=== PATIENT | female | born 1980 | race Caucasian/White ===

== ENCOUNTER 2017-01-25 11:49 | Inpatient (IN) | payer OTHER ==
[~2017-01-25] VITALS: Ht 162.6 cm; Wt 57.5 kg
--- NOTE | ~2017-01-25 | CO ---
Unit #: [id number] #: [id number] Patient: JANETT HOLMAN [id number] [address] [address] [id number] I MR#: [id number] NAME: JANETT HOLMAN ROOM: 47 Age: Sex: F Admission Date: 01/25/2017 : 1980 Attending Physician: Hannah Chirinos M.D. Primary Care Physician: No Primary Care Physician Consultation Date: 01/26/2017 CONSULTATION REPORT HISTORY AND EXAM Ms. Hloman is a 36-year-old female who has developed an abscess in the right antecubital fossa secondary to IV drug abuse with heroin. PAST MEDICAL HISTORY Tubal ligation. ALLERGIES No allergies to medication. MEDICATIONS No prescription medications. FAMILY HISTORY Diabetes. SOCIAL HISTORY Heroin abuse, tobacco abuse. Denies alcohol. REVIEW OF SYSTEMS Otherwise unremarkable. PHYSICAL EXAMINATION VITAL SIGNS: Her temperature is 98.3. Vital signs are stable. The patient is noncooperative with exam and rude and discourse. HEENT: Unremarkable. CARDIAC: Regular rhythm. LUNGS: Clear. ABDOMEN: Soft. EXTREMITIES: Tender, palpable, fluctuant abscess right antecubital fossa, otherwise unremarkable. NEUROLOGICAL: Grossly intact. DIAGNOSTIC STUDIES LABORATORY: Basic metabolic panel is within normal limits. White count 10,700, hemoglobin 12.8, platelets 315,000. Urinalysis was consistent with urinary tract infection. IMAGING: Ultrasound of the right upper extremity shows no evidence of deep venous thrombosis. Plain films of the arm showed no fracture, foreign body or dislocation. There is no gas in the subcutaneous tissues. Unit #: [id number] #: [id number] Patient: JANETT HOLMAN ASSESSMENT AND PLAN 1. Right antecubital fossa abscess secondary to IV drug abuse: The patient will need incision and drainage. I discussed this with the patient and explained to her that postop she will have an open wound requiring dressing changes. She seems to understand but doesn't really care what I tell her. 2. Urinary tract infection: Should be covered by the antibiotics she has been given for the abscess. 3. IV drug abuse. Dictated by... Bc Bo M.D. ASHLEY/franc TD: 01/26/2017 07:35 JOB #: [id number] CONSULTATION REPORT Page 1 of 1 X Bc oB MD CONSULTATION REPORT
--- NOTE | ~2017-01-25 | OR ---
Unit #: [id number] #: [id number] Patient: JANETT MIRANDA [id number] [address] [address] [id number] I MR#: [id number] NAME: JANETT MIRANDA ROOM: 47 Date of Procedure: 01/26/2017 Admission Date: 01/25/2017 Surgeon: Andrew Verdugo M.D. : 1980 Attending Physician: Dixon Montanez M.D. Primary Care Physician: Primary Care Physician No OPERATIVE REPORT PREOPERATIVE DIAGNOSIS Right antecubital fossa abscess. POSTOPERATIVE DIAGNOSIS Right antecubital fossa abscess. PROCEDURE PERFORMED Incision and drainage of right antecubital fossa abscess. ANESTHESIA General LMA anesthesia with 0.5% Marcaine plain local anesthesia. FINDINGS The patient had a right antecubital fossa abscess. All loculations were broken up. Cultures were sent. SPECIMENS Sent to microbiology. COMPLICATIONS None apparent. CONDITION The patient tolerated the procedure well. INDICATIONS FOR PROCEDURE The patient is a 36-year-old white female, who injected her right antecubital fossa with IV drugs. She developed erythema, cellulitis, and induration and an abscess in the area. She presents at this time for incision and drainage. DESCRIPTION OF PROCEDURE After obtaining informed consent as well as receiving scheduled antibiotics, the patient was brought to the operating room and after adequate general LMA anesthesia was obtained, had her right antecubital fossa prepped and draped in a sterile fashion. A 10 mL syringe with a 21-gauge needle was used to aspirate the area and a pocket of purulent material was found. An incision was made transversely and dissection was taken down through the skin and through the subcutaneous tissues with a knife and the electrocautery. A hemostat was used to enter into the abscess cavity and purulent material was evacuated. Cultures were sent. Unit #: [id number] #: [id number] Patient: JANETT MIRANDA All loculations were broken up. The wound was irrigated. Hemostasis was obtained with the Bovie, infiltrated with 0.5% Marcaine plain local anesthesia and packed with a saline soaked fluffs. Dry dressings were applied followed by a Kerlix wrap. Needle counts, sponge counts, and instrument counts were all correct as reported by the scrub nurse x2. The patient went from the operating room to recovery room in stable condition. Dictated by... Dario Zavala/burton TD: 01/26/2017 16:38 JOB #: [id number] CC: [facility] OPERATIVE REPORT Page 1 of 1 X Andrew Verdugo MD X PROCEDURE OPERATIVE NOTE
--- NOTE | ~2017-01-25 | DS ---
Unit #: [id number] #: [id number] Patient: JANETT MIRANDA [id number] [facility] [address] [facility]. [place], [place] [address] [id number] I MR#: [id number] NAME: JANETT MIRANDA ROOM: 47 Age: 36 Sex: F Admission Date: 01/25/2017 : 1980 Discharge Date: 01/29/2017 Attending Physician: Dixon Montanez M.D. Primary Care Physician: No Primary Care Physician DISCHARGE SUMMARY DISCHARGE DIAGNOSES 1. Abscess. Right arm cellulitis. 2. Drug abuse. HOSPITAL COURSE The patient is a 36-year-old female with IV heroin use. She presented to [facility] emergency department with right arm pain. It had been progressive over three days. The patient was noted to have some redness and swelling as well. The patient was taken to the operating room on 01/26/2017, where she underwent incision and drainage of right antecubital fossa abscess. Ultimately cultures have grown MRSA, susceptible to doxycycline. There was some concern initially about the best way to manage this patient as an outpatient, as she is apparently homeless. She states that she has secured a place to stay at her boyfriend's parents house. She is being discharged there now with home health for wound care. DISCHARGE MEDICATIONS 1. Percocet 10/325 mg 1 p.o. b.i.d. before dressing changes. 2. Doxycycline 100 mg p.o. b.i.d., #20. FOLLOWUP The patient should follow up with [facility] as needed. Dictated by... Koko Pizarro M.D. DEYSI/vasyl TD: 01/29/2017 08:30 JOB #: [id number] Unit #: [id number] #: [id number] Patient: JANETT MIRANDA DISCHARGE SUMMARY Page 1 of 1 X Koko Pizarro MD X DISCHARGE SUMMARY
--- NOTE | ~2017-01-25 | US140 ---
[facility] A Service of [facility] & [facility] RADIOLOGY TEXT RESULTS PATIENT: JANETT MIRANDA LOCATION: SED : 82 UNIT #: [id number] AGE: [address]: Robert Mckeon MD SEX: F ORDER DR: [id number] [place] [id number] E MR#: [id number] Acc #: [id number] NAME: JANETT MIRANDA : 1980 SEX: F STUDY DATE/TIME: 01/25/2017 13:15 UNIT: SED ROOM: STUDY DESCRIPTION: UE Veins Unilat or Ltd Stdy Attending Physician: Robert Mckeon M.D. Ordering Physician: Physician Non-Staff Primary Care Physician: Primary Care Physician No MEDICAL IMAGING REPORT This report is preliminary unless electronic signature is present. EXAM Right upper extremity venous ultrasound HISTORY Right upper extremity pain and swelling after IV drug usage x3 days. FINDINGS Real-time ultrasonography of the right upper extremity venous structures performed. Rasheed-scale, color Doppler and Doppler pulse-wave interrogation utilized. The right internal jugular, subclavian, axillary and brachial veins are patent. Normal compressibility where anatomically possible. Gpie-ot-kujv flow on color Doppler interrogation. There is no evidence of deep venous thrombosis. The right basilic and cephalic veins are patent as well with normal compressibility and normal fyrx-go-mylc flow on color Doppler interrogation. There is no evidence of superficial venous thrombosis. Somewhat irregular turbulent flow seen in the right internal jugular, subclavian and axillary veins on color Doppler interrogation and Doppler pulse waveform evaluation. Doppler pulse waveforms have a somewhat periodic configuration. Exact etiology is unclear. This might be interference from adjacent arterial structures. In light of the patient's history, correlate with any clinical concern for possible AV fistula. IMPRESSION 1. Right upper extremity venous ultrasound shows no evidence of deep or superficial venous thrombosis at time of this examination. 2. Somewhat turbulent flow on color Doppler and Doppler pulse-wave interrogation in right internal jugular, subclavian and axillary veins. Doppler pulse waveforms have a somewhat periodic appearance to them. The exact etiology of this appearance is unclear. It could be artifactual and reflect some transmission of wave form from adjacent arterial structures. In light of the patient's history, correlate with any clinical concern for possible AV fistula. [facility] A Service of [facility] RADIOLOGY TEXT RESULTS PATIENT: JANETT MIRANDA LOCATION: SED : 82 UNIT #: [id number] AGE: [address]: Robert Mckeon MD SEX: F ORDER DR: Dictated by... Maxim Lopez M.D. THIS IS AN ELECTRONICALLY VERIFIED REPORT Maxim Lopez M.D. at 01/25/2017 6:04 PM Caden TD: 01/25/2017 15:40 JOB #: [id number] MEDICAL IMAGING REPORT Page 1 of 1
--- NOTE | ~2017-01-25 | CR94 ---
[facility] A Service of [facility] & [facility] RADIOLOGY TEXT RESULTS PATIENT: JANETT MIRANDA LOCATION: SED : 82 UNIT #: [id number] AGE: [address]: Robert Mckeon MD SEX: F ORDER DR: [id number] [place] [address] [id number] E MR#: [id number] Acc #: [id number] NAME: JANETT MIRANDA : 1980 SEX: F STUDY DATE/TIME: 01/25/2017 UNIT: SED ROOM: STUDY DESCRIPTION: CR Elbow Min 3 Views Rt Attending Physician: Robert Mckeon M.D. Ordering Physician: Robert Mckeon M.D. Primary Care Physician: Primary Care Physician No MEDICAL IMAGING REPORT This report is preliminary unless electronic signature is present. EXAM Right elbow 3 views 01/25/2017 12:16 hours HISTORY 36-year-old woman with history of intravenous drug use, infected, red painful injection site of the right elbow. Evaluate for foreign body. COMPARISON None. FINDINGS AP, lateral and oblique views demonstrate diffuse subcutaneous edema in the antecubital fossa extending both proximally and distally. There is no intraarticular joint effusion, fracture or bone lesion. No foreign body seen. IMPRESSION Diffuse subcutaneous edema in an acute all fossa with no fracture, foreign body or soft tissue gas. Dictated by... Kaila Chen M.D. THIS IS AN ELECTRONICALLY VERIFIED REPORT Kaila Chen M.D. at 01/25/2017 2:32 PM RHONDAM/tacho TD: 01/25/2017 14:07 JOB #: [id number] MEDICAL IMAGING REPORT Page 1 of 1
--- NOTE | ~2017-01-25 | HP ---
Unit #: [id number] #: [id number] Patient: JANETT MIRANDA [id number] [address] [place], [place] [address] [id number] I MR#: [id number] NAME: JANETT MIRANDA ROOM: 47 Age: 36 Sex: F Admission Date: 01/25/2017 : 1980 Attending Physician: Hannah Chirinos M.D. Primary Care Physician: No Primary Care Physician HISTORY AND PHYSICAL HISTORY OF PRESENT ILLNESS The patient is a 36-year-old woman who presented to the emergency room with symptoms of increasing pain over her right arm over the past three days. Patient states that she was injecting heroin into her right arm three days ago and subsequently the next day she noticed redness and pain over the area following which today she had difficulty moving her right arm due to the pain and swelling. PAST MEDICAL HISTORY No prior past medical illness. PAST SURGICAL HISTORY Tubal ligation. SOCIAL HISTORY Heroin abuse, smokes about a pack and a half a day, no alcohol abuse. FAMILY HISTORY Family history of diabetes in her father's side. ALLERGIES No known drug allergies. REVIEW OF SYSTEMS As per HPI. Rest of review of systems is negative. PHYSICAL EXAMINATION GENERAL: On examination patient is awake, alert, oriented, well nourished. HEENT: Oropharynx is clear. NECK: Supple. Trachea midline. CVS: Regular rate and rhythm. LUNGS: Clear to auscultation bilaterally. ABDOMEN: Soft, nontender, nondistended. EXTREMITIES: Redness, erythema and swelling over the right antecubital fossa of the right arm. Peripheral pulse is palpable bilaterally. No cyanosis. RECORD CLERK: No focal deficits. ASSESSMENT AND PLAN Right arm cellulitis and abscess secondary to heroin abuse. Plan is to order empiric IV broad-spectrum antibiotics; vancomycin to cover MRSA, Zosyn to cover anaerobes and Gram negatives. Surgical consultation for Unit #: [id number] #: [id number] Patient: JANETT MIRANDA incision and drainage. Dictated by Dario Trivedi/azar TD: 01/25/2017 21:48 JOB #: [id number] HISTORY AND PHYSICAL Page 1 of 1 X X HISTORY AND PHYSICAL
--- NOTE | ~2017-01-25 | CO ---
Unit #: [id number] #: [id number] Patient: AJNETT HOLMAN [id number] [facility] [address] [facility] [place] [facility]. [place], [place] [address] [id number] I MR#: [id number] NAME: JANETT HOLMAN ROOM: 477 Age: 36 Sex: F Admission Date: 01/25/2017 : 1980 Attending Physician: Dixon Montanez Consultation Date: 01/27/2017 CONSULTATION REPORT REASON FOR CONSULTATION Agitation, aggression, history of substance abuse, benzodiazepine, amphetamine, and opioids. HISTORY OF PRESENT ILLNESS Ms. Janett Holman is a 36-year-old female, seen in room 477 bed 1 on 4C at [facility] on 01/27/2017. The patient dressed in hospital attire, extremely agitated, unable to give any reliable information. Required Haldol 10 mg, Cogentin 1 mg, Ativan 1 mg deep intramuscular injection. The patient's information obtained from the nursing staff as well as from the chart. The patient's urine drug screen upon admission was positive for benzodiazepine, amphetamine, and opioids. The patient is well known to [facility] from her previous admission in 08/2016 with similar complaints. The patient diagnosed with major depressive disorder and opioid dependence. PAST PSYCHIATRIC HISTORY Remarkable for [facility] and opioid dependence. The patient was presented here at [facility] due to increasing pain over right arm over the past 3 days at the injection site. The patient has a history of heroin IV abuse. MEDICAL HISTORY Unremarkable for any chronic medical condition except for abscess on her injection site on right arm. MEDICATIONS HISTORY None. FAMILY HISTORY AND SOCIAL HISTORY The patient has a good support system from her boyfriend. No history of abuse. History of substance abuse as mentioned above. Amphetamine, opiates. REVIEW OF SYSTEMS Complete review of systems is unremarkable except as mentioned above. MENTAL STATUS EXAMINATION The patient's vital signs; temperature 97.9, pulse 90 , respirations 20, blood pressure 116/74, oxygen saturations 100%. General appearance; the patient dressed casually in hospital attire, somewhat agitated. Attention span and concentration, poor. Speech, rapid. Orientation in self. Mood and affect, labile. Thought process, circumstantial. Thought content, guarded, paranoid, mood lability, agitation. Recent and remote memory, Unit #: [id number] #: [id number] Patient: JANETT HOLMAN. Language, fair. Fund of knowledge, poor. Insight and judgment, impaired. DIAGNOSES Psychiatric: Psychosis, not otherwise specified, F29.0; opioid use disorder, severe, F11.20; history of major depressive disorder, recurrent, severe, F33.2. Secondary diagnosis: Deferred. Medical diagnosis: Please refer to H and P. Stressors: Psychosocial stressor. ASSESSMENT AND PLAN 1. Supportive psychotherapy and psychoeducation provided to the patient, but the patient unable to comprehend much at this time because of agitation. 2. Educated about benefits and side effects of medication. 3. Advised medication as mentioned above. Haldol 10 mg, Cogentin 1 mg, and Ativan 1 mg deep intramuscular now. After that, we will monitor for any withdrawal symptoms from opioids. If needed, consider further adjustment of medication. Please feel free to call if any questions telephone #[phone]. Dictated by... Dario Sewell/burton TD: 01/28/2017 12:39 JOB #: [id number] CONSULTATION REPORT Page 1 of 1 X Conner Andino MD X CONSULTATION REPORT
--- NOTE | ~2017-01-25 | CO ---
Unit #: [id number] #: [id number] Patient: JANETT HOLMAN [id number] [address] [address] [id number] I MR#: [id number] NAME: JANETT HOLMAN ROOM: 477 Age: 36 Sex: F Admission Date: 01/25/2017 : 1980 Attending Physician: Dixon Montanez Consultation Date: 01/28/2017 CONSULTATION REPORT REASON FOR CONSULTATION Followup. DISCUSSION Ms. Janett Holman is a 36-year-old female, seen in room 477 bed 1 on 01/28/2017 at [facility]. The patient was admitted with abscess. The patient had incision and drainage done yesterday. The patient's vital signs; temperature 98.1, pulse 71, respirations 18, blood pressure 133/81, and oxygen saturation of 100%. The patient reported having lot of anxiety, nervousness, trouble sleeping, mood lability, restlessness of her legs, feeling hot and cold sweats. The patient's urine drug screen was positive for benzodiazepine, amphetamine, and opiates. REVIEW OF SYSTEMS Complete review of systems is unremarkable except as mentioned above. MENTAL STATUS EXAMINATION General appearance; the patient dressed in hospital attire, anxious, nervous, somewhat restless. Attention span and concentration, fair. Speech; regular rate and coherent. Oriented in time, place, and person. Mood and affect were labile, sad, dysphoric, anxious. Thought process, coherent. Thought content, the patient denied any thoughts of harming self or others or any hallucination. Recent and remote memory, fair. Language, intact. Fund of knowledge, fair. Insight and judgment, fair to slightly impaired. DIAGNOSES Psychiatric: Amphetamine use disorder, severe, F15.20; opioid use disorder, severe, F11.20; major depressive disorder, recurrent, severe, F33.2, sedative hypnotic use disorder, severe, F13.20. Secondary diagnosis: Deferred. ASSESSMENT/PLAN 1. Supportive psychotherapy and psychoeducation provided to the patient. 2. Educated about benefits and side effects of medication and course and prognosis of illness. 3. Advised Neurontin 300 mg t.i.d., trazodone 75 mg at bedtime for sleep, Requip 1 mg at bedtime, and Vistaril 25 mg t.i.d. for anxiety. We will continue to follow. Please feel free to call if any questions, telephone #[phone]. Unit #: [id number] #: [id number] Patient: JANETT HOLMAN Dictated by... Dario Sewell/burton TD: 01/28/2017 22:14 JOB #: [id number] CONSULTATION REPORT Page 1 of 1 X Conner Andino MD X CONSULTATION REPORT
--- NOTE | ~2017-01-25 | CO ---
Unit #: [id number] #: [id number] Patient: JANETT MIRANDA [id number] [address] [place], [place] [address] [id number] I MR#: [id number] NAME: JANETT MIRANDA ROOM: 477 Age: 36 Sex: F Admission Date: 01/25/2017 : 1980 Attending Physician: Dixon Montanez Consultation Date: 01/27/2017 CONSULTATION REPORT REASON FOR CONSULTATION Antibiotic management. HISTORY OF PRESENT ILLNESS The patient is a 36-year-old female with history of IV drug use, was using right upper extremity veins for injection of heroin, started having some pain, swelling, and redness, came into the hospital and found out to have superficial abscess, underwent I and D. Preliminary culture, Staphylococcus aureus from the wound, blood cultures are negative. She is on vancomycin, initially was on vancomycin and cefepime. Infectious Disease consultation requested for further evaluation and antibiotic management. The patient denies any fevers, chills, nausea, vomiting, diarrhea, cough, congestion, chest pain, shortness of breath, headaches, or dizziness. PAST MEDICAL HISTORY Unremarkable. SOCIAL HISTORY Remarkable for IV drug use. FAMILY HISTORY Noncontributory. ALLERGIES No known drug allergies. CURRENT MEDICATIONS List reviewed. Antibiotics include vancomycin, now initiate vancomycin and cefepime. PHYSICAL EXAMINATION GENERAL: Sitting up comfortable. No distress. VITAL SIGNS: Temperature 98.6, pulse is 86, respirations 20, blood pressure 119/77. HEENT: Unremarkable. CHEST: Clear to auscultation. HEART: Normal S1, S2. ABDOMEN: Soft, nontender. EXTREMITIES: Right upper extremity has a dressing. DIAGNOSTIC STUDIES IMAGING STUDIES: Right upper extremity Dopplers negative for deep vein thrombosis. Unit #: [id number] #: [id number] Patient: JANETT MIRANDA LABORATORY RESULTS: No BMP today. Yesterday, BUN was 10, creatinine 0.5. No CBC today. Yesterday, WBC was 10.6, hemoglobin 12.8, and platelets 315. Tox screen was positive for benzodiazepines, cocaine, and opiates. Urinalysis had leukocyte esterase, nitrites, and some pyuria. Blood cultures have been negative so far. Urine culture less than 10,000 colonies. Wound culture; Staphylococcus aureus sensitivities pending. ASSESSMENT 1. Right upper extremity abscess. 2. Intravenous drug use. 3. Doubt urinary tract infection. PLAN We will go ahead and continue the patient on vancomycin, pending results of the sensitivity and adjust antibiotics accordingly with the negative blood pressure on the superficial wound. I doubt the patient is to be on IV antibiotics because of tremors, so should be able to change to oral antibiotics when she is ready for discharge. Further recommendation depending upon the course. I will thank Dr. Marquez for asking us to participate in the care of this patient. We will follow this patient along with you. Dictated by... Dario Hinds TD: 01/27/2017 20:22 JOB #: [id number] CONSULTATION REPORT Page 1 of 1 X Jae Mo MD X CONSULTATION REPORT
[~2017-01-25 11:49] MED LIST: AMBIEN PO; BUSPAR30 MG PO; FLEXERIL10 M1 PO; IBUPROFEN400 MG PO; KLONOPIN1 MG PO; LORTAB 7.5-5001 TAB PO; VICODIN 5/1 TAB 5/50 PO
[2017-01-25 12:52] LABS: BASOPHIL% 0.3 % (0-2.5); EOSINOPHIL# 0.1 X10e3 (0-0.7); EOSINOPHIL% 1.2 % (0.0-7.0); HEMATOCRIT 37.6 % (35.0-45.0); HEMOGLOBIN 12.8 gm/dL (12.0-16.0); LYMPHOCYTE% 19.2 % (17.0-45.0); MEAN CELL VOLUME 83.8 FL (83-96); MEAN CORPUSCULAR HEMOGLOBIN 28.6 PG (28-34); MEAN CORPUSCULAR HGB CONC 34.1 g/dL (30-36); MEAN PLATELET VOLUME 7.4 FL (6.5-11.5); MONOCYTE# 0.8 X10e3 (0-1.0); MONOCYTE% 7.9 % (3.0-12.0); NEUTROPHIL# 7.6 X10e3 (1.5-7.1); NEUTROPHIL% 71.4 % (40-75); PLATELET COUNT 315 X10e3 (140-420); RED BLOOD COUNT 4.48 X10e (3.90-5.30); RED CELL DISTRIBUTION WIDTH 14.3 % (11.0-15.5); WHITE BLOOD COUNT 10.7 X10e3 (4.0-10.5)
[2017-01-25 13:01] LABS: DIFF IND NO
[2017-01-25 13:11] LABS: ALBUMIN SERUM 4.2 g/dL (3.5-5.0); BILIRUBIN,TOTAL 0.6 mg/dL (0.2-2.0); BUN/CREATININE RATIO 16.66; CALCIUM SERUM 9.2 mg/dL (8.4-10.2); CREATININE SERUM 0.6 mg/dL (0.6-1.4); GLOM FILT RATE Estimated 118.9 mL/min (>60); POTASSIUM 3.9 mmol/L (3.5-5.1); PROTEIN TOTAL SERUM 7.6 g/dL (6.0-8.3)
[2017-01-25 14:54] LABS: URINE SOURCE CLEAN CATCH
[2017-01-25 14:57] LABS: URINE APPEARANCE CLEAR; URINE BILIRUBIN NEG (NEG); URINE BLOOD 3+ (NEG); URINE COLOR YELLOW; URINE GLUCOSE NEG (NORM); URINE KETONE NEG (NEG); URINE LEUKOCYTE ESTERASE 3+ (NEG); URINE NITRATE POS (NEG); URINE PROTEIN NEG (NEG); URINE SPECIFIC GRAVITY 1.015 (1.003-1.035); URINE UROBILINOGEN 0.2 MG/DL (NORM)
[2017-01-25 14:59] LABS: MICRO INDICATED? YES
[2017-01-25 15:09] LABS: AMPHETAMINE POS (NEG); BARBITURATES NEG (NEG); BENZODIAZEPINES POS (NEG); COCAINE NEG (NEG); MARIJUANA NEG (NEG); OPIATES POS (NEG); TRICYCLIC ANTIDEPRESSANTS NEG (NEG); U METHADONE NEG (NEG)
[2017-01-25 15:11] LABS: CULTURE INDICATED? YES; URINE BACTERIA 3+ (NEG); URINE MUCUS PRESENT; URINE SQUAMOUS EPITHELIAL CELL MANY /[HPF]; URINE WBC 50-100 /[HPF] (0-5)
[2017-01-26 02:44] LABS: CALCIUM SERUM 8.4 mg/dL (8.4-10.2); CREATININE SERUM 0.5 mg/dL (0.6-1.4); GLOM FILT RATE Estimated 126.3 mL/min (>60); POTASSIUM 3.6 mmol/L (3.5-5.1)
[2017-01-28 03:44] LABS: CALCIUM SERUM 8.5 mg/dL (8.4-10.2); CARBON DIOXIDE 24 mmol/L (22-31); CHLORIDE 111 mmol/L (100-111); CREATININE SERUM 0.5 mg/dL (0.6-1.4); GLOM FILT RATE Estimated 126.3 mL/min (>60); GLUCOSE FASTING 78 mg/dL (70-110); POTASSIUM 3.9 mmol/L (3.5-5.1); SODIUM 142 mmol/L (135-145)
[2017-01-28 03:46] LABS: BLOOD UREA NITROGEN <5 mg/dL (9-23)
[2017-01-30] MEDS ORDERED: NO MEDICATIONS (13:44)
== END 2017-01-29 07:20 | disposition home or self-care (01) | DRG 580 ==
LOC: SED 11:49 → C4C 18:30 → SED 18:42 → C4C 01-26 08:18
PROVIDERS: Emergency Medicine; Internal Medicine; Physician Assistant; Surgery
PROC: 0J9D0ZZ Drainage of Right Upper Arm Subcutaneous Tissue and Fascia, Open Approach (ICD-10-PCS; principal; 2017-01-26 12:30)
DX: L02.413 Cutaneous abscess of right upper limb (principal); F11.20 Opioid dependence, uncomplicated; F33.2 Major depressive disorder, recurrent severe without psychotic features; F13.20 Sedative, hypnotic or anxiolytic dependence, uncomplicated; F15.20 Other stimulant dependence, uncomplicated; N39.0 Urinary tract infection, site not specified; B95.62 Methicillin resistant Staphylococcus aureus infection as the cause of diseases classified elsewhere; F29 Unspecified psychosis not due to a substance or known physiological condition; F17.200 Nicotine dependence, unspecified, uncomplicated; Z98.51 Tubal ligation status; Z83.3 Family history of diabetes mellitus; L03.113 Cellulitis of right upper limb
CPT/HCPCS: 36415; 73080; 80048; 80053; 80202; 80307; 81003; 83605; 84703; 85025; 86592; 87040; 87070; 87075; 87077; 87086; 87186; 87205; 93971; 96365; 96366; 96367; 96375; 99284; J0515; J1630; J1650; J1885; J2060; J2250; J2270; J2543; J3010; J3370

== ENCOUNTER 2017-01-30 13:39 | Emergency (ER) | payer OTHER ==
[2017-01-30] MEDS ORDERED: NO MEDICATIONS (13:44)
== END 2017-01-30 14:15 | disposition home or self-care (01) ==
LOC: SED 13:39
DX: G89.18 Other acute postprocedural pain (principal); F41.9 Anxiety disorder, unspecified; F17.210 Nicotine dependence, cigarettes, uncomplicated
CPT/HCPCS: 99283